=== PATIENT | male | born 1940 | race Caucasian/White ===

== ENCOUNTER 2018-05-14 02:20 | Observation (INO) | payer OTHER ==
[~2018-05-14] VITALS: Ht 167.6 cm; Wt 68.1 kg
[~2018-05-14 02:20] MED LIST: ALBU8.5H5 INH; ATOR40TA78 PO; IBUP-1223 PO; KETO120S TP; LORA10TA3 PO; METO50TA82 PO; OXYM30MI NS; TAMS0.4C2 PO
[2018-05-14 03:57] LABS: ALANINE AMINOTRANSFERASE 22 U/L (12-78); ALBUMIN 3.4 g/dL (3.4-5.0); ANION GAP 6 mmol/L (5-15); CALCIUM 8.2 mg/dL (8.5-10.1); CHLORIDE 109 mmol/L (98-107); CREATININE 0.92 mg/dL (0.7-1.3)
[2018-05-14 04:02] LABS: ALKALINE PHOSPHATASE 65 U/L (45-117); BILIRUBIN,TOTAL 0.3 mg/dL (0.2-1.0); TOTAL PROTEIN 6.5 g/dL (6.4-8.2); TROPONIN I 0.032 ng/mL (0.000-0.045)
[2018-05-14 04:11] LABS: BASOPHILS # (AUTO) 0.02 x10^3/uL (0-0.1); BASOPHILS % (AUTO) 0 % (0-1); EOSINOPHILS # (AUTO) 0.23 x10^3/uL (0-0.4); EOSINOPHILS % (AUTO) 2 % (1-7); LYMPHOCYTES # (AUTO) 0.45 x10^3/uL (1-3.4); LYMPHOCYTES % (AUTO) 4 % (22-44); MD NO; MEAN CORPUSCULAR HEMOGLOBIN 31.6 pg (27.5-34.5); MEAN CORPUSCULAR HGB CONC 34.1 g/dL (33.2-36.2); MEAN CORPUSCULAR VOLUME 92.8 fL (81-97); MEAN PLATELET VOLUME 7.4 fL (7.4-10.4); MONOCYTES # (AUTO) 0.47 x10^3/uL (0.2-0.8); MONOCYTES % (AUTO) 5 % (2-9); NEUTROPHILS # (AUTO) 9.08 x10^3/uL (1.8-6.8); NEUTROPHILS % (AUTO) 89 % (42-75); PLATELET COUNT 347 x10^3/uL (130-400); RED BLOOD COUNT 3.99 x10^6/uL (4.38-5.82); RED CELL DISTRIBUTION WIDTH 14.6 % (9.4-14.8)
[2018-05-14] MEDS ORDERED: MAALOX/HYOSCYAMINE/LIDOCAINE 45 ML BTL ONE (04:19)
[2018-05-14] MEDS ORDERED: MAALOX/HYOSCYAMINE/LIDOCAINE 45 ML BTL PO ONE (04:30)
[2018-05-14] MEDS ORDERED: LISI-170 PO (05:40)
[2018-05-14] MEDS ORDERED: OXYC5CAP2 PO ×2 (05:40→09:13)
[2018-05-14] MEDS ORDERED: FLUT16SP NS (05:40)
[2018-05-14] MEDS ORDERED: ASPI-496 PO (05:40)
[2018-05-14] MEDS ORDERED: TRIA80OI TP (05:40)
[2018-05-14] MEDS ORDERED: BUDE10.2 PO (05:40)
[2018-05-14] MEDS ORDERED: METH500T7 PO (05:40)
[2018-05-14] MEDS ORDERED: ONDANSETRON 2MG/ML, 2ML IVPush PRN ×2 (06:30→07:30)
[2018-05-14] MEDS ORDERED: IBUPROFEN 800 MG TABLET PO PRN (07:30)
[2018-05-14 08:04] LABS: TROPONIN I 0.038 ng/mL (0.000-0.045)
[2018-05-14] MEDS ORDERED: METOPROLOL TARTRATE 50 MG TABLET PO SCH (09:00)
[2018-05-14] MEDS ORDERED: FLUTICASONE NASAL SPRAY 16GM NAS SCH (09:00)
[2018-05-14] MEDS ORDERED: TAMSULOSIN 0.4 MG CAP.ER.24H PO SCH (09:00)
[2018-05-14] MEDS: TRIAMCINOLONE OINT 0.025%, 15GM TP SCH ×2 (09:00→20:34)
[2018-05-14 09:04] VITALS: BP 130/70
[2018-05-14] MEDS ORDERED: BUDE10.2 INH (09:13)
[2018-05-14] MEDS ORDERED: METO25TA35 PO (09:13)
[2018-05-14] MEDS ORDERED: CHOL100012 PO (09:13)
[2018-05-14] MEDS: LORATADINE 10 MG TABLET PO SCH (10:30)
[2018-05-14] MEDS: ASPIRIN 81 MG TABLET EC PO SCH (10:30)
[2018-05-14] MEDS: PANTOPROZOLE 40MG TABLET PO SCH (10:30)
[2018-05-14] MEDS: D5%-0.45% NACL 1,000 ML IV SCH (10:31)
[2018-05-14] MEDS: Budesonide/Formoterol Fumarate (Symbicort 160-4.5 Mcg Inhaler) HOMEINH SCH ×2 (10:31→20:34)
[2018-05-14] MEDS: ENOXAPARIN 40 MG/0.4 ML SQ SCH (10:31)
[2018-05-14 13:48] LABS: TROPONIN I 0.042 ng/mL (0.000-0.045)
[2018-05-14 14:06] VITALS: BP 131/69
[2018-05-14] MEDS: OXYcodone IR 5MG TABLET PO PRN ×2 (16:11→20:39)
[2018-05-14 18:13] VITALS: BP 130/70
[2018-05-14] MEDS: METOPROLOL TARTRATE 25 MG TABLET PO SCH (18:15)
[2018-05-14 20:17] VITALS: BP 133/73
[2018-05-14] MEDS ORDERED: ATORVASTATIN 40 MG TABLET PO SCH (21:00)
[2018-05-15 01:15] VITALS: BP 133/68
[2018-05-15 05:26] LABS: CHLORIDE 108 mmol/L (98-107)
[2018-05-15 05:34] LABS: ALANINE AMINOTRANSFERASE 20 U/L (12-78); ALBUMIN 2.9 g/dL (3.4-5.0); ALKALINE PHOSPHATASE 65 U/L (45-117); ANION GAP 7 mmol/L (5-15); BILIRUBIN,TOTAL 0.3 mg/dL (0.2-1.0); CALCIUM 7.9 mg/dL (8.5-10.1); CHOL/HDL RATIO 3.3; CHOLESTEROL, TOTAL 106 mg/dL (140-239); CREATININE 0.69 mg/dL (0.7-1.3); HDL CHOL % 30 % (26-37); HDL CHOLESTEROL (DIRECT) 32 mg/dL (40-60); LDL CHOLESTEROL,CALCULATED 58 mg/dL (54-169); LDL/HDL RATIO 1.8 (0.5-3.0); TOTAL PROTEIN 5.8 g/dL (6.4-8.2); TRIGLYCERIDES 82 mg/dL (50-200); VLDL CHOLESTEROL 16 mg/dL (0-25)
[2018-05-15] MEDS: METOPROLOL TARTRATE 25 MG TABLET PO SCH (05:35)
[2018-05-15] MEDS: D5%-0.45% NACL 1,000 ML IV SCH (05:36)
[2018-05-15] MEDS: PANTOPROZOLE 40MG TABLET PO SCH (07:30)
[2018-05-15 08:28] VITALS: BP 154/77
[2018-05-15] MEDS ORDERED: REGADENOSON 0.4 MG/5 ML SYRINGE ONE (08:32)
[2018-05-15] MEDS: ENOXAPARIN 40 MG/0.4 ML SQ SCH (09:00)
[2018-05-15] MEDS: Budesonide/Formoterol Fumarate (Symbicort 160-4.5 Mcg Inhaler) HOMEINH SCH (09:00)
[2018-05-15] MEDS ORDERED: TAMSULOSIN 0.4 MG CAP.ER.24H PO SCH (09:00)
[2018-05-15] MEDS ORDERED: FLUTICASONE NASAL SPRAY 16GM NAS SCH (09:00)
[2018-05-15] MEDS: ASPIRIN 81 MG TABLET EC PO SCH (11:59)
[2018-05-15] MEDS: LORATADINE 10 MG TABLET PO SCH (11:59)
[2018-05-15] MEDS: TRIAMCINOLONE OINT 0.025%, 15GM TP SCH (12:04)
[2018-05-15 13:20] VITALS: BP 166/72
== END 2018-05-15 14:55 | disposition home or self-care (01) ==
LOC: ED 04:56 → INTOOBSV 06:40 → EDIP 06:40 → 5SO 08:15 → DCLOUNGE 05-15 14:20
PROVIDERS: ADMIT Internal Medicine; ATTEND Internal Medicine
DX: R07.9 Chest pain, unspecified (principal); I25.10 Atherosclerotic heart disease of native coronary artery without angina pectoris; I10 Essential (primary) hypertension; E78.5 Hyperlipidemia, unspecified; G89.29 Other chronic pain; J44.9 Chronic obstructive pulmonary disease, unspecified; N40.0 Benign prostatic hyperplasia without lower urinary tract symptoms; Z79.51 Long term (current) use of inhaled steroids; Z95.1 Presence of aortocoronary bypass graft; Z79.899 Other long term (current) drug therapy
CPT/HCPCS: 36415; 71045; 78452; 80053; 80061; 80307; 83690; 83880; 84484; 85025; 93005; 93017; 96360; 96361; 96372; A9502; C9898; G0378; J1650; J2785

== ENCOUNTER 2018-06-08 08:29 | Observation (INO) | payer OTHER ==
[~2018-06-08] VITALS: Ht 167.6 cm; Wt 65.3 kg
[~2018-06-08 08:29] MED LIST changes: +ASPI-496 PO; +BUDE10.2 INH; +BUDE10.2 PO; +CHOL100012 PO; +FLUT16SP NS; -KETO120S TP; +KETO120S2 TP; +LISI-170 PO; +METH500T7 PO; +METO25TA35 PO; +OXYC5CAP2 PO; +TRIA80OI TP
[2018-06-08] MEDS ORDERED: SODIUM CHLORIDE FLUSH 10ML SYR IVF ONE (09:00)
[2018-06-08 09:02] LABS: BASOPHILS # (AUTO) 0.01 x10^3/uL (0-0.1); BASOPHILS % (AUTO) 0 % (0-1); EOSINOPHILS # (AUTO) 0.26 x10^3/uL (0-0.4); EOSINOPHILS % (AUTO) 4 % (1-7); LYMPHOCYTES # (AUTO) 0.65 x10^3/uL (1-3.4); LYMPHOCYTES % (AUTO) 11 % (22-44); MD NO; MEAN CORPUSCULAR HGB CONC 33.8 g/dL (33.2-36.2); MEAN CORPUSCULAR VOLUME 91.6 fL (81-97); MEAN PLATELET VOLUME 6.7 fL (7.4-10.4); MONOCYTES # (AUTO) 0.34 x10^3/uL (0.2-0.8); MONOCYTES % (AUTO) 6 % (2-9); NEUTROPHILS # (AUTO) 4.76 x10^3/uL (1.8-6.8); NEUTROPHILS % (AUTO) 79 % (42-75); PLATELET COUNT 389 x10^3/uL (130-400); RED BLOOD COUNT 4.12 x10^6/uL (4.38-5.82); RED CELL DISTRIBUTION WIDTH 14.3 % (9.4-14.8)
[2018-06-08 09:15] LABS: ALANINE AMINOTRANSFERASE 33 U/L (12-78); ALBUMIN 3.6 g/dL (3.4-5.0); ANION GAP 7 mmol/L (5-15); CALCIUM 8.4 mg/dL (8.5-10.1); CHLORIDE 111 mmol/L (98-107)
[2018-06-08 09:19] LABS: ALKALINE PHOSPHATASE 69 U/L (45-117); BILIRUBIN,TOTAL 0.5 mg/dL (0.2-1.0); TOTAL PROTEIN 6.7 g/dL (6.4-8.2); TROPONIN I 0.074 ng/mL (0.000-0.045)
[2018-06-08] MEDS ORDERED: OMNIPAQUE 350 MG/ML, 100ML BOTTLE ONE (10:15)
[2018-06-08] MEDS ORDERED: TRAZODONE 50MG TABLET PO PRN (12:30)
[2018-06-08] MEDS ORDERED: LORazepam 2 MG/ML, 1ML IVPush PRN (12:30)
[2018-06-08] MEDS ORDERED: ENALAPRILAT 1.25 MG/ML, 2ML IVPush PRN (12:30)
[2018-06-08] MEDS ORDERED: GUAIFENESIN/DM 200-20MG, 10ML UDC PO PRN (12:30)
[2018-06-08] MEDS ORDERED: ONDANSETRON ODT 4 MG PO PRN (12:30)
[2018-06-08] MEDS ORDERED: ACETAMINOPHEN 325 MG TABLET PO PRN (12:30)
[2018-06-08] MEDS ORDERED: DOCUSATE 100 MG CAPSULE PO PRN (12:30)
[2018-06-08] MEDS ORDERED: IBUPROFEN 800 MG TABLET PO PRN (12:30)
[2018-06-08 12:34] VITALS: BP 118/69
[2018-06-08 13:14] LABS: TROPONIN I 0.078 ng/mL (0.000-0.045)
[2018-06-08 13:20] LABS: FREE T4 (FREE THYROXINE) 0.67 ng/dL (0.76-1.46); THYROID STIMULATING HORMONE 0.396 mIU/L (0.358-3.740)
[2018-06-08] MEDS: HEPARIN 5,000 UNITS/ML, 1ML SQ SCH ×2 (13:28→21:11)
[2018-06-08 13:36] LABS: HEMOGLOBIN A1C 5.6 % (4.2-6.3)
[2018-06-08] MEDS ORDERED: ALBUTEROL SULFATE 2.5 MG/3 ML NPPB PRN (14:00)
[2018-06-08 14:18] VITALS: BP 114/67
[2018-06-08] MEDS: ALBUTEROL SULFATE 2.5 MG/3 ML NPPB SCH ×2 (16:00→20:19)
[2018-06-08] MEDS: METHOCARBAMOL 500 MG TABLET PO SCH ×2 (17:26→21:12)
[2018-06-08 18:49] LABS: TROPONIN I 0.075 ng/mL (0.000-0.045)
[2018-06-08 19:04] VITALS: BP 124/61
[2018-06-08] MEDS ORDERED: METOPROLOL TARTRATE 25 MG TABLET PO SCH (21:00)
[2018-06-08] MEDS ORDERED: (Budesonide/Formoterol Fumarate (Symbicort 160-4.5 Mcg Inhaler PO SCH (21:00)
[2018-06-08 21:06] VITALS: BP 137/69
[2018-06-08] MEDS: OXYcodone/APAP 7.5/325MG TABLET PO PRN (21:12)
[2018-06-08] MEDS: ATORVASTATIN 40 MG TABLET PO SCH (21:12)
[2018-06-08] MEDS: FAMOTIDINE 20 MG TABLET PO SCH (21:12)
[2018-06-08] MEDS: FLUTICASONE/VILANTEROL 200-25MCG/INH INH SCH (21:29)
[2018-06-09 03:01] LABS: MICROSCOPIC NOT IND
[2018-06-09 03:06] LABS: CULTURE INDICATED? NO
[2018-06-09 03:09] VITALS: BP 119/62
[2018-06-09] MEDS: OXYcodone/APAP 7.5/325MG TABLET PO PRN (03:40)
[2018-06-09] MEDS: HEPARIN 5,000 UNITS/ML, 1ML SQ SCH ×3 (04:50→21:58)
[2018-06-09 05:48] LABS: BASOPHILS # (AUTO) 0.03 x10^3/uL (0-0.1); BASOPHILS % (AUTO) 1 % (0-1); EOSINOPHILS # (AUTO) 0.36 x10^3/uL (0-0.4); EOSINOPHILS % (AUTO) 9 % (1-7); LYMPHOCYTES % (AUTO) 26 % (22-44); MD NO; MEAN CORPUSCULAR HEMOGLOBIN 31.6 pg (27.5-34.5); MEAN CORPUSCULAR HGB CONC 33.8 g/dL (33.2-36.2); MEAN CORPUSCULAR VOLUME 93.4 fL (81-97); MEAN PLATELET VOLUME 7.1 fL (7.4-10.4); MONOCYTES # (AUTO) 0.42 x10^3/uL (0.2-0.8); MONOCYTES % (AUTO) 10 % (2-9); NEUTROPHILS % (AUTO) 55 % (42-75); PLATELET COUNT 354 x10^3/uL (130-400); RED BLOOD COUNT 3.91 x10^6/uL (4.38-5.82); RED CELL DISTRIBUTION WIDTH 14.5 % (9.4-14.8)
[2018-06-09 05:52] LABS: ANION GAP 6 mmol/L (5-15); CALCIUM 8.1 mg/dL (8.5-10.1); CHLORIDE 111 mmol/L (98-107); CHOLESTEROL, TOTAL 132 mg/dL (140-239); CREATININE 0.69 mg/dL (0.7-1.3); TRIGLYCERIDES 66 mg/dL (50-200); VLDL CHOLESTEROL 13 mg/dL (0-25)
[2018-06-09 05:54] LABS: CHOL/HDL RATIO 3.2; HDL CHOL % 31 % (26-37); HDL CHOLESTEROL (DIRECT) 41 mg/dL (40-60); LDL CHOLESTEROL,CALCULATED 78 mg/dL (54-169); LDL/HDL RATIO 1.9 (0.5-3.0)
[2018-06-09] MEDS: ALBUTEROL SULFATE 2.5 MG/3 ML NPPB SCH ×3 (07:28→21:39)
[2018-06-09] MEDS: FLUTICASONE/VILANTEROL 200-25MCG/INH INH SCH (09:46)
[2018-06-09] MEDS: TAMSULOSIN 0.4 MG CAP.ER.24H PO SCH (09:48)
[2018-06-09] MEDS: FOLIC ACID 1 MG TABLET PO SCH (09:48)
[2018-06-09] MEDS: LISINOPRIL 20 MG TABLET PO SCH (09:49)
[2018-06-09] MEDS: FAMOTIDINE 20 MG TABLET PO SCH ×2 (09:49→21:58)
[2018-06-09] MEDS: LORATADINE 10 MG TABLET PO SCH (09:49)
[2018-06-09] MEDS: THIAMINE 100MG TABLET PO SCH (09:49)
[2018-06-09] MEDS: METOPROLOL TARTRATE 25 MG TABLET PO SCH ×2 (09:50→22:01)
[2018-06-09] MEDS: MULTIVITAMIN 1 TABLET PO SCH (09:50)
[2018-06-09] MEDS: ASPIRIN 81 MG TABLET EC PO SCH (09:50)
[2018-06-09] MEDS: CHOLECALCIFEROL 1,000 UNIT TABLET PO SCH (09:50)
[2018-06-09] MEDS: METHOCARBAMOL 500 MG TABLET PO SCH ×3 (09:50→22:02)
[2018-06-09] MEDS: OXYMETAZOLINE NASAL SPRAY 0.05%, 15ML NAS SCH (09:51)
[2018-06-09 09:55] VITALS: BP 118/65
[2018-06-09 13:03] VITALS: BP 106/56
[2018-06-09 19:23] VITALS: BP 133/65
[2018-06-09] MEDS: ATORVASTATIN 40 MG TABLET PO SCH (21:58)
[2018-06-09 22:00] VITALS: BP 133/66
[2018-06-10] MEDS: OXYcodone/APAP 7.5/325MG TABLET PO PRN ×2 (00:27→09:09)
[2018-06-10 01:41] VITALS: BP 128/63
[2018-06-10] MEDS: HEPARIN 5,000 UNITS/ML, 1ML SQ SCH ×3 (04:54→19:49)
[2018-06-10 05:32] LABS: BASOPHILS # (AUTO) 0.03 x10^3/uL (0-0.1); BASOPHILS % (AUTO) 1 % (0-1); EOSINOPHILS # (AUTO) 0.32 x10^3/uL (0-0.4); EOSINOPHILS % (AUTO) 9 % (1-7); LYMPHOCYTES # (AUTO) 1.12 x10^3/uL (1-3.4); LYMPHOCYTES % (AUTO) 30 % (22-44); MD NO; MEAN CORPUSCULAR HEMOGLOBIN 31.5 pg (27.5-34.5); MEAN CORPUSCULAR HGB CONC 34.4 g/dL (33.2-36.2); MEAN CORPUSCULAR VOLUME 91.5 fL (81-97); MEAN PLATELET VOLUME 7.1 fL (7.4-10.4); MONOCYTES # (AUTO) 0.42 x10^3/uL (0.2-0.8); MONOCYTES % (AUTO) 11 % (2-9); NEUTROPHILS # (AUTO) 1.87 x10^3/uL (1.8-6.8); NEUTROPHILS % (AUTO) 50 % (42-75); PLATELET COUNT 341 x10^3/uL (130-400); RED BLOOD COUNT 3.76 x10^6/uL (4.38-5.82); RED CELL DISTRIBUTION WIDTH 14.1 % (9.4-14.8)
[2018-06-10 05:46] LABS: CALCIUM 8.4 mg/dL (8.5-10.1); CHLORIDE 108 mmol/L (98-107)
[2018-06-10 05:50] LABS: ANION GAP 6 mmol/L (5-15); CREATININE 0.69 mg/dL (0.7-1.3)
[2018-06-10] MEDS: FLUTICASONE/VILANTEROL 200-25MCG/INH INH SCH (07:51)
[2018-06-10] MEDS: FOLIC ACID 1 MG TABLET PO SCH (07:51)
[2018-06-10] MEDS: ASPIRIN 81 MG TABLET EC PO SCH (07:52)
[2018-06-10] MEDS: TAMSULOSIN 0.4 MG CAP.ER.24H PO SCH (07:52)
[2018-06-10] MEDS: LORATADINE 10 MG TABLET PO SCH (07:52)
[2018-06-10] MEDS: METHOCARBAMOL 500 MG TABLET PO SCH ×3 (07:52→19:50)
[2018-06-10] MEDS: LISINOPRIL 20 MG TABLET PO SCH (07:52)
[2018-06-10] MEDS: FAMOTIDINE 20 MG TABLET PO SCH ×2 (07:52→19:49)
[2018-06-10] MEDS: CHOLECALCIFEROL 1,000 UNIT TABLET PO SCH (07:52)
[2018-06-10] MEDS: METOPROLOL TARTRATE 25 MG TABLET PO SCH ×2 (07:52→19:50)
[2018-06-10] MEDS: OXYMETAZOLINE NASAL SPRAY 0.05%, 15ML NAS SCH (07:53)
[2018-06-10] MEDS: THIAMINE 100MG TABLET PO SCH (07:53)
[2018-06-10] MEDS: MULTIVITAMIN 1 TABLET PO SCH (07:53)
[2018-06-10 08:16] VITALS: BP 169/71
[2018-06-10] MEDS: ALBUTEROL SULFATE 2.5 MG/3 ML NPPB SCH ×3 (09:28→20:08)
[2018-06-10 15:40] VITALS: BP 137/61
[2018-06-10 19:09] VITALS: BP 132/66
[2018-06-10] MEDS ORDERED: DOCUSATE 100 MG CAPSULE PO PRN (19:30)
[2018-06-10] MEDS ORDERED: POLYETHYLENE GLYCOL 17 GM PACKET PO PRN (19:30)
[2018-06-10] MEDS ORDERED: LORazepam 1MG TABLET PO PRN (19:30)
[2018-06-10] MEDS ORDERED: BISACODYL 10 MG SUPP PR PRN (19:30)
[2018-06-10] MEDS ORDERED: ONDANSETRON ODT 4 MG PO PRN (19:30)
[2018-06-10] MEDS ORDERED: ACETAMINOPHEN 325 MG TABLET PO PRN (19:30)
[2018-06-10] MEDS: ATORVASTATIN 40 MG TABLET PO SCH (19:49)
== END 2018-06-10 21:32 ==
LOC: ED 09:37 → 5SO 10:08 → INTOOBSV 10:08
PROVIDERS: ADMIT Internal Medicine; ATTEND Internal Medicine
DX: R07.89 Other chest pain (principal); E87.6 Hypokalemia; E78.5 Hyperlipidemia, unspecified; E11.9 Type 2 diabetes mellitus without complications; F41.9 Anxiety disorder, unspecified; I10 Essential (primary) hypertension; I25.10 Atherosclerotic heart disease of native coronary artery without angina pectoris; J44.9 Chronic obstructive pulmonary disease, unspecified; G89.29 Other chronic pain; N40.0 Benign prostatic hyperplasia without lower urinary tract symptoms; Z95.1 Presence of aortocoronary bypass graft; Z87.891 Personal history of nicotine dependence
CPT/HCPCS: 36415; 71045; 71275; 80048; 80053; 80061; 81003; 82140; 83036; 83690; 83880; 84439; 84443; 84484; 85025; 85379; 93005; 94640; 96372; 99285; G0378; J1644; J7613; Q9967

== ENCOUNTER 2018-06-10 18:13 | Inpatient (IN) | payer OTHER ==
[2018-06-09 22:30] VITALS: BP 147/82
[2018-06-10] VITALS (9 sets, daily range): BP systolic 109–174; BP diastolic 68–82
[2018-06-10] MEDS ORDERED: LORazepam 1MG TABLET PO PRN (19:00)
[2018-06-10] MEDS ORDERED: ACETAMINOPHEN 325 MG TABLET PO PRN (19:00)
[2018-06-10] MEDS ORDERED: ONDANSETRON ODT 4 MG PO PRN (19:00)
[2018-06-10] MEDS ORDERED: BISACODYL 10 MG SUPP PR PRN (19:00)
[2018-06-10] MEDS ORDERED: DOCUSATE 100 MG CAPSULE PO PRN (19:00)
[2018-06-10] MEDS ORDERED: POLYETHYLENE GLYCOL 17 GM PACKET PO PRN (19:00)
[2018-06-10] MEDS: MIRTAZAPINE 15 MG TABLET PO SCH (22:00)
[2018-06-10] MEDS ORDERED: LORazepam 2 MG/ML, 1ML IM ONE (22:00)
[2018-06-10] MEDS ORDERED: LORazepam 2 MG/ML, 1ML ONE (22:06)
[2018-06-11] VITALS (12 sets, daily range): BP systolic 115–187; BP diastolic 68–86
[2018-06-11] MEDS ORDERED: LORazepam 2 MG/ML, 1ML IM ONE (00:30)
[2018-06-11] MEDS ORDERED: OLANZAPINE 10 MG INJ IM ONE (02:00)
[2018-06-11 06:30] LABS: FOLATE LEVEL 17.4 ng/mL (3.1-17.5)
[2018-06-11] MEDS: TAMSULOSIN 0.4 MG CAP.ER.24H PO SCH (11:24)
[2018-06-11] MEDS: LORazepam 1MG TABLET PO PRN ×2 (11:30→23:30)
[2018-06-11] MEDS: METOPROLOL TARTRATE 25 MG TABLET PO SCH ×2 (17:12→17:45)
[2018-06-11] MEDS: ATORVASTATIN 20 MG TABLET PO SCH (20:17)
[2018-06-11] MEDS: MIRTAZAPINE 15 MG TABLET PO SCH (20:18)
[2018-06-11] MEDS: ACETAMINOPHEN 325 MG TABLET PO PRN (20:18)
[2018-06-12] VITALS (10 sets, daily range): BP systolic 95–157; BP diastolic 49–81
[2018-06-12] MEDS: ASPIRIN 81 MG TABLET EC PO SCH (04:50)
[2018-06-12] MEDS: METOPROLOL TARTRATE 25 MG TABLET PO SCH ×2 (05:34→17:40)
[2018-06-12] MEDS: TAMSULOSIN 0.4 MG CAP.ER.24H PO SCH (09:16)
[2018-06-12] MEDS: LORazepam 1MG TABLET PO PRN (12:50)
[2018-06-12] MEDS: ATORVASTATIN 20 MG TABLET PO SCH (20:01)
[2018-06-12] MEDS: MIRTAZAPINE 15 MG TABLET PO SCH (20:01)
[2018-06-13] MEDS: METOPROLOL TARTRATE 25 MG TABLET PO SCH ×2 (06:38→17:12)
[2018-06-13] MEDS: ASPIRIN 81 MG TABLET EC PO SCH (06:38)
[2018-06-13 06:39] VITALS: BP 126/67
[2018-06-13] MEDS: TAMSULOSIN 0.4 MG CAP.ER.24H PO SCH (09:45)
[2018-06-13] MEDS ORDERED: LORazepam 1MG TABLET PO PRN (12:30)
[2018-06-13] MEDS: ACETAMINOPHEN 325 MG TABLET PO PRN ×2 (13:56→19:41)
[2018-06-13 17:11] VITALS: BP 147/72
[2018-06-13] MEDS: RISPERIDONE 1 MG TABLET PO SCH (17:12)
[2018-06-13] MEDS ORDERED: ALBUTEROL/IPRATROPIUM 2.5MG/0.5MG, 3 ML ONE (18:58)
[2018-06-13] MEDS ORDERED: ALBUTEROL/IPRATROPIUM 2.5MG/0.5MG, 3 ML NPPB PRN (19:00)
[2018-06-13 19:20] VITALS: BP 90/53
[2018-06-13] MEDS: ATORVASTATIN 20 MG TABLET PO SCH (20:25)
[2018-06-13] MEDS: MIRTAZAPINE 15 MG TABLET PO SCH (20:25)
[2018-06-14 06:19] VITALS: BP 125/71
[2018-06-14] MEDS: ASPIRIN 81 MG TABLET EC PO SCH (06:25)
[2018-06-14] MEDS: METOPROLOL TARTRATE 25 MG TABLET PO SCH ×2 (06:25→18:29)
[2018-06-14 07:40] VITALS: BP 183/93
[2018-06-14] MEDS: TAMSULOSIN 0.4 MG CAP.ER.24H PO SCH (08:08)
[2018-06-14] MEDS: RISPERIDONE 1 MG TABLET PO SCH (17:00)
[2018-06-14 18:00] VITALS: BP 135/64
[2018-06-14] MEDS: ACETAMINOPHEN 325 MG TABLET PO PRN ×2 (18:43→20:37)
[2018-06-14 19:44] VITALS: BP 163/85
[2018-06-14] MEDS: MIRTAZAPINE 15 MG TABLET PO SCH (20:37)
[2018-06-14] MEDS: ATORVASTATIN 20 MG TABLET PO SCH (20:37)
[2018-06-14] MEDS: RISPERIDONE 0.5 MG TABLET PO PRN (23:30)
[2018-06-15] MEDS: ACETAMINOPHEN 325 MG TABLET PO PRN (01:35)
[2018-06-15 07:21] VITALS: BP 150/89
[2018-06-15] MEDS: ASPIRIN 81 MG TABLET EC PO SCH (07:56)
[2018-06-15] MEDS: METOPROLOL TARTRATE 25 MG TABLET PO SCH ×2 (07:56→17:50)
[2018-06-15] MEDS: TAMSULOSIN 0.4 MG CAP.ER.24H PO SCH (08:02)
[2018-06-15] MEDS: RISPERIDONE 1 MG TABLET PO SCH (16:40)
[2018-06-15 17:46] VITALS: BP 151/75
[2018-06-15 19:30] VITALS: BP 118/69
[2018-06-15] MEDS: RISPERIDONE 0.5 MG TABLET PO PRN (19:52)
[2018-06-15] MEDS: MIRTAZAPINE 15 MG TABLET PO SCH (20:43)
[2018-06-15] MEDS: ATORVASTATIN 20 MG TABLET PO SCH (20:43)
[2018-06-16] MEDS: ACETAMINOPHEN 325 MG TABLET PO PRN (02:20)
[2018-06-16] MEDS: METOPROLOL TARTRATE 25 MG TABLET PO SCH (06:18)
[2018-06-16] MEDS: ASPIRIN 81 MG TABLET EC PO SCH (06:18)
[2018-06-16 07:33] VITALS: BP 124/59
[2018-06-16] MEDS: TAMSULOSIN 0.4 MG CAP.ER.24H PO SCH (09:22)
== END 2018-06-16 13:45 | disposition left against medical advice (07) | DRG 885 ==
LOC: 3E 21:49
PROVIDERS: ADMIT Psychiatry & Neurology Psychosomatic Medicine; ATTEND Psychiatry & Neurology Psychosomatic Medicine
DX: F33.1 Major depressive disorder, recurrent, moderate (principal); R45.851 Suicidal ideations; E78.5 Hyperlipidemia, unspecified; F09 Unspecified mental disorder due to known physiological condition; F10.21 Alcohol dependence, in remission; F22 Delusional disorders; F41.9 Anxiety disorder, unspecified; G89.29 Other chronic pain; I10 Essential (primary) hypertension; Z53.21 Procedure and treatment not carried out due to patient leaving prior to being seen by health care provider; I25.10 Atherosclerotic heart disease of native coronary artery without angina pectoris; J44.9 Chronic obstructive pulmonary disease, unspecified; Z78.1 Physical restraint status; Z88.0 Allergy status to penicillin; Z88.8 Allergy status to other drugs, medicaments and biological substances
CPT/HCPCS: 36415; 73502; J7620; 82140; 82607; 82746; 86592; 92523-GN; G0515-GN; J2060

== ENCOUNTER 2018-07-20 14:07 | Emergency (ER) | payer OTHER ==
[~2018-07-20] VITALS: Ht 167.6 cm; Wt 70.0 kg
[2018-07-20 17:02] VITALS: BP 168/76
== END 2018-07-20 18:08 | disposition home or self-care (01) ==
LOC: ED 14:36
DX: S02.19XA Other fracture of base of skull, initial encounter for closed fracture (principal); S60.222A Contusion of left hand, initial encounter; S60.221A Contusion of right hand, initial encounter; Y04.8XXA Assault by other bodily force, initial encounter; Y93.89 Activity, other specified; Y99.8 Other external cause status; Y92.149 Unspecified place in prison as the place of occurrence of the external cause
CPT/HCPCS: 70450; 70486; 99284

== ENCOUNTER 2018-11-23 19:34 | Emergency (ER) | payer MEDICARE, OTHER ==
[~2018-11-23] VITALS: Ht 172.7 cm; Wt 89.0 kg
[~2018-11-23 19:34] MED LIST changes: +LORA-247 PO; -LORA10TA3 PO
[2018-11-23 19:38] VITALS: BP 103/53
[2018-11-23 20:43] LABS: TROPONIN I 0.044 ng/mL (0.000-0.045)
--- NOTE | 2018-11-23 21:10 | NUR ---
PT UP FOR RECHECK WITH LABS BACK AND RESTING WITH NO REPORTED CP.
== END 2018-11-23 22:33 | disposition home or self-care (01) ==
LOC: ED 22:27
DX: R07.89 Other chest pain (principal); J44.9 Chronic obstructive pulmonary disease, unspecified; I10 Essential (primary) hypertension; E11.9 Type 2 diabetes mellitus without complications
CPT/HCPCS: 36415; 84484; 93005; 99284